=== PATIENT | male | born 1945 ===

== ENCOUNTER 2024-08-31 16:51 | Inpatient (IN) | payer MEDICARE ==
[~2024-08-31] VITALS: Ht 180.3 cm; Wt 77.4 kg
--- NOTE | 2024-08-31 19:00 | NUR ---
arrived on unit per stretcher per EMS,stood and assisted over into bed, moves slow and c/o a lot of pain to right flank area with movement,
--- NOTE | 2024-08-31 19:15 | NUR ---
resting in bed, Ruben MARIANO in to see patient, med history completed
[2024-08-31] MEDS ORDERED: LIPITOR 40MG TA40 MG PO (19:24)
[2024-08-31] MEDS ORDERED: GINKGO BILOBA40 M5 PO (19:25)
[2024-08-31] MEDS ORDERED: CALCIUM 600-D 61 TAB PO (19:25)
[2024-08-31] MEDS ORDERED: HCTZ12.5TAB PO (19:26)
[2024-08-31] MEDS ORDERED: TOPROL XL100 MG PO (19:27)
[2024-08-31] MEDS ORDERED: MICARDIS80 MG PO (19:28)
[2024-08-31] MEDS ORDERED: PROTONIX 40MG T40 MG PO (19:28)
[2024-08-31] MEDS ORDERED: THERAGRAN TAB1 UDTAB PO (19:29)
[2024-08-31] MEDS ORDERED: VIAGRA50 M1 PO (19:29)
[2024-08-31] MEDS ORDERED: SAW PALMETTO 101 SGL PO (19:31)
[2024-08-31 19:32] VITALS: BP 166/80; PULSE 68; TEMP 98
--- NOTE | 2024-08-31 19:45 | NUR ---
bedside shift report given to NURA Morillo
[2024-08-31] MEDS ORDERED: LR 1,000 ML IV SCH (20:15)
[2024-08-31] MEDS ORDERED: Ondansetron 4 MG/2 ML VIAL IV PRN (20:15)
[2024-08-31 20:45] VITALS: BP_SYST 166
[2024-08-31] MEDS ORDERED: Atorvastatin 40 MG TAB PO SCH (21:00)
--- NOTE | 2024-08-31 21:28 | NUR ---
Patient assessed around 2044. Alert and oriented, and able to make needs known. Denies having pain and discomfort. Peripheral IV to right AC. Started IV fluids per orders. Waiting on pharmacy clarification for ABX. Denies SOB and dyspnea. LS CTA. HRR. BSAx4. No edema. Indwelling lilly catheter patent, draining clear, suzanna urine via dependent drainage. Family updated on visiting hours. Voices no questions, needs, or concerns at this time. In bed with call light within reach. High fall risk precautions in place. Bed alarm on.
[2024-08-31 21:59] LABS: CREATININE, serum 0.8 mg/dL (0.72-1.25)
[2024-09-01] VITALS (23 sets, daily range): BP systolic 120–180; BP diastolic 66–87; PULSE 61–84; TEMP 97.6–99.5
--- NOTE | 2024-09-01 06:28 | NUR ---
Patient has denied pain and discomfort this shift. Continues on IV fuids and ABX per orders. Has been NPO since midnight. Voices no questions, needs, or concerns at this time. In bed with call light within reach. High fall risk precautions in place. Bed alarm on.
[2024-09-01 07:02] LABS: HEMATOCRIT 37.5 % (42.0-52.0); HEMOGLOBIN 13.2 g/dl (13.5-18.0); MEAN CELL VOLUME 97 fl (80.0-100.0); MEAN CORPUSCULAR HEMOGLOBIN 34 pg (27-31); MEAN CORPUSCULAR HGB CONC 35 g/dl (33.0-37.0); MEAN PLATELET VOLUME 11.1 fl (7.4-10.4); PLATELET COUNT 188 K/mm3 (130-400); RED BLOOD COUNT 3.85 M/mm3 (4.20-5.60); REDCELL DISTRIBUTION WIDTH-CV 12.2 % (11.5-14.5)
[2024-09-01 07:07] LABS: CALCIUM 9.2 mg/dL (8.4-10.2); CREATININE, serum 0.75 mg/dL (0.72-1.25); POTASSIUM 4.4 mEq/L (3.5-4.5)
[2024-09-01 07:55] LABS: BAND 21 % (0-10); LYMPHOCYTE 7 % (20.0-51.0); NEUTROPHILS 66 % (42.0-75.2); PLATELET ESTIMATE NORMAL (NORMAL)
--- NOTE | 2024-09-01 08:00 | NUR ---
PATIENT SITTING UP IN BED. HEAD TO TOE ASSESSMENT COMPLETED, MORNING MED GIVEN, DENIES PAIN AT THIS TIME. CLAMPED CATHETER PER IMAGING REQUEST TO RETAIN URINE IN BLADDER FOR UPCOMING PROCEDURE. BED IN LOWEST POSITION, CALL LIGHT IN REACH, NONSKID SOCKS ON.
--- NOTE | 2024-09-01 09:16 | NUR ---
turn out worker met with patient at bedside to discuss discharge planning. Patient stated that he lives by himself just outside of [place]. When asked, patient designated his daughter, Alexsandra Paniagua (p# [phone]). Patient stated that his PCP is Dr. Balderrama and that he uses the [facility]. Patient denies using any DMEs at home, denies needing any assistance with ADLs or driving to and from appointments, and confirms that he is able to drive himself to and from appointments. Patient states that he is not using any other home services at this time and is not sure if he will want to discharge home by himself or to stay with his daughter. Plan: D/C home or home with family support.
--- NOTE | 2024-09-01 09:39 | NUR ---
Initial visit; Patient appeared confused, stating he didn't know why he was in the hospital. Tractor Expert explained he would be seeing a Hospitalist soon who would speak with him, ask him questions about his health issues and aid him in getting the help he needs . And, in the mean-time Tractor Expert could keep him in her prayers and offered God's blessingss. "Neo" said that was fine and thanked Tractor Expert for visit.
--- NOTE | 2024-09-01 11:00 | NUR ---
Pt to ct per wheelchair. Pt placed on ct table in supine position. Monitors applied and O2 on at 2l/nc.
[2024-09-01] MEDS ORDERED: Midazolam 2 MG/2 ML VIAL IV SCH (11:10)
[2024-09-01] MEDS ORDERED: fentaNYL 50 MCG/ML 2 ML VIAL IV SCH ×2 (11:10→11:20)
--- NOTE | 2024-09-01 11:30 | NUR ---
Drain in place and Dr Freeman removed 40 mls of purulent drainage. Specimen obtained. Specimen labeled.
--- NOTE | 2024-09-01 11:34 | NUR ---
Aman unclamped per instruction of Dr Freeman.
--- NOTE | 2024-09-01 20:00 | NUR ---
pt is a&ox4 resting in bed watching tv. vss. meds given and assessment complete. pt denies pain. abcess drain in place w minimal output, dressing is cdi. lilly to dd w dark tea colored urine. IV to right ac fell out and a new 20g was inserted into the right forearm, LR infusing at 100ml/hr. pt denies needs at this time. call light in reach.
[2024-09-02] VITALS (11 sets, daily range): BP systolic 129–165; BP diastolic 69–79; PULSE 67–79; TEMP 98.2–100.4
[2024-09-02 06:21] LABS: HEMATOCRIT 37.4 % (42.0-52.0); HEMOGLOBIN 13.5 g/dl (13.5-18.0); MEAN CELL VOLUME 96 fl (80.0-100.0); MEAN CORPUSCULAR HEMOGLOBIN 35 pg (27-31); MEAN CORPUSCULAR HGB CONC 36 g/dl (33.0-37.0); MEAN PLATELET VOLUME 10.6 fl (7.4-10.4); PLATELET COUNT 183 K/mm3 (130-400); REDCELL DISTRIBUTION WIDTH-CV 11.9 % (11.5-14.5)
[2024-09-02 06:52] LABS: CALCIUM 8.6 mg/dL (8.4-10.2); CREATININE, serum 0.69 mg/dL (0.72-1.25); POTASSIUM 3.7 mEq/L (3.5-4.5)
--- NOTE | 2024-09-02 08:00 | NUR ---
PATIENT SITTING UP IN BED. AAOX4. HEAD TO TOE ASSESSMENT COMPLETED. MORNING MEDS GIVEN. DENIES PAIN AT THIS TIME. BED IN LOWEST POSITION, CALL LIGHT IN REACH, NONSKID SOCKS ON.
[2024-09-02 08:12] LABS: BAND 4 % (0-10); LYMPHOCYTE 11 % (20.0-51.0); NEUTROPHILS 79 % (42.0-75.2); PLATELET ESTIMATE NORMAL (NORMAL)
[2024-09-02] MEDS ORDERED: Losartan 50 MG TAB PO SCH (09:00)
[2024-09-02] MEDS ORDERED: Telmisartan 80 MG **** subs to Losartan 100 MG PO SCH (09:00)
--- NOTE | 2024-09-02 20:00 | NUR ---
PATIENT IS A&O. VSS. REPORTS MINIMAL PAIN AT DRAIN SITE RATED AT 2/10. ABSCESS DRAIN TO COMPRESSION WITH SMALL AMOUNTS OF BLOODY DRAINAGE THAT HAS A FOUL SMELL. [facility] REPORTS POSITIVE BC, AWAITING FAX. SHI TO [facility]. IV ABX INFUSING VIA PUMP INTO RIGHT FORARM IV. TOLERATING AHA DIET. HS MEDS GIVEN. HEAD TO TOE ASSESSMENT COMPLETE. NO OTHER NEEDS AT THIS TIME. CALL LIGHT IN REACH. BED ALARM ON.
[2024-09-03] VITALS (10 sets, daily range): BP systolic 144–164; BP diastolic 71–78; PULSE 53–69; TEMP 97.5–98.6
[2024-09-03 04:40] LABS: BASO # 0.1 K/mm3 (0.0-0.2); BASO % 0.8 % (0.0-2.0); EOS # 0.3 K/mm3 (0.0-0.7); EOS % 4.4 % (0.0-4.0); GRAN # 3.2 K/mm3 (1.4-6.5); GRAN % 42.7 % (42.2-75.2); LYMPH # 3.3 K/mm3 (1.2-3.4); LYMPH % 43.9 % (20.0-51.0); MEAN CELL VOLUME 95 fl (80.0-100.0); MEAN CORPUSCULAR HEMOGLOBIN 33 pg (27-31); MEAN CORPUSCULAR HGB CONC 35 g/dl (33.0-37.0); MEAN PLATELET VOLUME 10.9 fl (7.4-10.4); MONO # 0.6 K/mm3 (0.1-0.6); MONO % 7.8 % (1.7-9.3); PLATELET COUNT 215 K/mm3 (130-400); RED BLOOD COUNT 3.89 M/mm3 (4.20-5.60); REDCELL DISTRIBUTION WIDTH-CV 14.3 % (11.5-14.5)
[2024-09-03 04:41] LABS: HEMATOCRIT 36.8 % (42.0-52.0)
[2024-09-03 04:54] LABS: CALCIUM 8.7 mg/dL (8.4-10.2); CREATININE, serum 0.75 mg/dL (0.72-1.25); POTASSIUM 3.7 mEq/L (3.5-4.5)
[2024-09-03 05:31] LABS: LYMPHOCYTE 15 % (20.0-51.0); NEUTROPHILS 77 % (42.0-75.2); PLATELET ESTIMATE NORMAL (NORMAL)
--- NOTE | 2024-09-03 08:37 | NUR ---
SHIFT ASSESSMENT COMPLETE. VSS. PATIENT GETTING UP TO RECLINER FOR BREAKFAST. ALL MORNING MEDS GIVEN PER ORDERS. APTIENT REPORTS NO PAIN AT THIS TIME. ACCORDIAN DRAIN IN PLACE TO ABD WITH DARK BROWN DRAINAGE. OSULLIVAN CATH IN PLACE DARK YELOOW TO ORANGE COLORED URINE DRAINING. PATIENT HAS NO REQUEST AT THIS TIME. CHAIR ALARM ON AND CALL LIGHT IN REACH
[2024-09-03] MEDS ORDERED: hydroCHLOROthiazide 12.5 MG CAP PO SCH (09:00)
[2024-09-03] MEDS ORDERED: Iohexol 300 - 100 ML VIAL IV ONE (12:03)
--- NOTE | 2024-09-03 12:13 | NUR ---
SW attended clinical rounds. Anticipate possible discharge tomorrow. SW met with patient to review Medicare IM form, patient voiced understanding and agreement with discharge to home when medically ready. Patient signed form, original on chart, copy to patient. Patient stated he has a FWW at home and does not require one to be ordered for discharge. Patient verified that he has transportation available for ride home. Discharge plan: Home
--- NOTE | 2024-09-03 19:48 | NUR ---
Patient assessed at this time, A/Ox4, see shift assessment, denies pain or discomfort, still with IV infusing well on right forearm, reports he had BM today, with accordion drain with no drainage noted, dressing clean, dry and intact, denies further needs, call light and personal items within reach, will continue to monitor.
[2024-09-04] VITALS (12 sets, daily range): BP systolic 150–178; BP diastolic 65–81; PULSE 52–62; TEMP 97.7–98.3
[2024-09-04 08:29] LABS: BASO # 0.1 K/mm3 (0.0-0.2); BASO % 0.5 % (0.0-2.0); EOS # 0.2 K/mm3 (0.0-0.7); GRAN % 65.5 % (42.2-75.2); HEMOGLOBIN 13.8 g/dl (13.5-18.0); LYMPH # 1.5 K/mm3 (1.2-3.4); LYMPH % 16.2 % (20.0-51.0); MEAN CELL VOLUME 95 fl (80.0-100.0); MEAN CORPUSCULAR HEMOGLOBIN 34 pg (27-31); MEAN CORPUSCULAR HGB CONC 36 g/dl (33.0-37.0); MONO # 1.4 K/mm3 (0.1-0.6); MONO % 15.4 % (1.7-9.3); PLATELET COUNT 216 K/mm3 (130-400); RED BLOOD COUNT 4.01 M/mm3 (4.20-5.60); REDCELL DISTRIBUTION WIDTH-CV 11.6 % (11.5-14.5)
--- NOTE | 2024-09-04 08:30 | NUR ---
SHIFT ASSESSMENT COMPLETE. VSS. PATIENT AWAKE EATIING BREAFAST IN BED. ALL MORNING MEDS GIVEN ORDERED. PATIENT STATES NO PAIN THIS AM. DRAIN IN PLACE WITH BROWN DRAINAGE TO COMPRESSION. OSULLIVAN IN PLACE URINE YELLOW BUT CLOUDY THIS AM. PATIENT HAS NO REQUEST AT THIS TIME. BED ALARM ON AND CALL LIGHT IN REACH
[2024-09-04 08:47] LABS: ALBUMIN 2.6 g/dL (3.4-4.8); BILIRUBIN,TOTAL 0.9 mg/dL (0.2-1.2); CALCIUM 9.1 mg/dL (8.4-10.2); CREATININE, serum 0.7 mg/dL (0.72-1.25); POTASSIUM 3.3 mEq/L (3.5-4.5); TOTAL PROTEIN 6.5 g/dl (6.2-8.1)
--- NOTE | 2024-09-04 09:19 | NUR ---
PATIENT REQUESTING TO GO TO BATHROOM AND SIT IN RECLINER THIS NURSE ASSISTED PATIENT UP AND PT TOOK OVER AND WALKED WITH PATIENT AROUND THE ROOM AND TO THE RECLINER TO SIT. NO OTHER REQUEST AT THIS TIME. CALL LIGHT IN REACH AND CHAIR ALARM ON
--- NOTE | 2024-09-04 12:36 | NUR ---
Data: Patient declined spiritual care visit offered during Straightening Press Operator Helper rounds stating he is Anabaptist and he has said his prayers. Patient accepted a rosary offered to him and thanked Straightening Press Operator Helper. Assessment: None. Patient declined. Plan of Care: Chaplains will remain available as needed/requested while Patient is admitted to this hospital.
--- NOTE | 2024-09-04 21:06 | NUR ---
Patient assessed at this time, watching TV, denies pain or discomfort, IV to right AC infiltrated, restarted IV to right wrist and tolerated it well, with lilly to dependent drainage, still with abscess drain to abdomen scant drainage noted, denies further needs, call light and personal items within reach, will continue to monitor.
[2024-09-05] VITALS (14 sets, daily range): BP systolic 150–157; BP diastolic 68–82; PULSE 48–63; TEMP 97.5–98.5
--- NOTE | 2024-09-05 07:27 | NUR ---
SHIFT ASSESSMENT COMPLETE. VSS. PATIENT RESTING IN BED AWAITING BREAKFAST. DRAIN IN PLACE NO DRAINAGE AT THIS TIME. OSULLIVAN IN PLACE DARKER YELLOW URINE DRAINING. PATIENT STATES NO PAIN AT THIS TIME. BED ALARM ON AND CALL LIGHT IN REACH
[2024-09-05 09:38] LABS: HEMOGLOBIN 14.2 g/dl (13.5-18.0); MEAN CELL VOLUME 94 fl (80.0-100.0); MEAN CORPUSCULAR HEMOGLOBIN 34 pg (27-31); MEAN CORPUSCULAR HGB CONC 36 g/dl (33.0-37.0); MEAN PLATELET VOLUME 10.5 fl (7.4-10.4); PLATELET COUNT 253 K/mm3 (130-400); RED BLOOD COUNT 4.16 M/mm3 (4.20-5.60); REDCELL DISTRIBUTION WIDTH-CV 11.4 % (11.5-14.5)
[2024-09-05 10:03] LABS: ALANINE AMINOTRANSFERASE 20 U/L (0-55); ALBUMIN 2.8 g/dL (3.4-4.8); ALKALINE PHOSPHATASE 56 U/L (40-150); ANION GAP 9 mmol/L (7-16); AST,SGOT 27 U/L (5-34); BILIRUBIN,TOTAL 0.7 mg/dL (0.2-1.2); CALCIUM 9.3 mg/dL (8.4-10.2); CHLORIDE 97 mEq/L (98-107); GLUCOSE 104 mg/dL (70-99); POTASSIUM 3.5 mEq/L (3.5-4.5); SODIUM 131 mEq/L (136-145)
[2024-09-05 10:13] LABS: BLOOD UREA NITROGEN < 5 mg/dL (8-26)
[2024-09-05 10:55] LABS: BAND 3 % (0-10); BASOPHIL 1 % (0-2); LYMPHOCYTE 30 % (20.0-51.0); NEUTROPHILS 53 % (42.0-75.2); NUCLEATED RED BLOOD CELL 1 (0-6); PLATELET ESTIMATE NORMAL (NORMAL)
[2024-09-05] MEDS ORDERED: Vancomycin 1.25 GM,Special Dose/Pharmacy Prepared 1.25 GM in NS 250 ML IV SCH (16:15)
[2024-09-05] MEDS ORDERED: Vancomycin 1.75 GM,Special Dose/Pharmacy Prepared 1.75 GM in NS 500 ML IV ONE (16:45)
--- NOTE | 2024-09-05 19:11 | NUR ---
Vancomycin Initial Dosing Pharmacy Note Ordering provider: Danna Mckoy MD Indication/duration: ABDOMINAL ABSCESS - 7 DAYS Relevant comorbidities: 79 YO MALE LABS: CRCL 64 ML/MIN , 77.4 KG Recommendation: Loading dose: 1.75 grams Maintenance dose: 1.25 grams every 12 hours Trough goal: 15-20 ug/mL
--- NOTE | 2024-09-05 21:42 | NUR ---
PATIENT ALERT AND ORIENTED X4. VSS. PATIENT HERE FOR DIVERTICULITIS WITH AN ABSCESS DRAIN PLACEMENT. DRAIN WITH SMALL AMOUNT OF OUTPUT. DRESSING CDI. IV TO RIGHT FA WITH VANC INFUSING. PATIENT DENIES ANY PAIN AT THIS TIME. PM MEDS ADMINISTERED. NO FURTHER NEEDS. CALL LIGHT IN REACH. BED ALARM ON.
[2024-09-06] VITALS (7 sets, daily range): BP systolic 117–165; BP diastolic 63–81; PULSE 56–63; TEMP 97.4–98.3
[2024-09-06] MEDS ORDERED: Vancomycin 1.25 GM,Special Dose/Pharmacy Prepared 1.25 GM in NS 250 ML IV SCH (08:00)
--- NOTE | 2024-09-06 11:50 | NUR ---
SHIFT ASSESSMENT COMPLETED. PATIENT AWAKE AND REQUESTING TO GO TO RESTROOM. THIS HELPED PATIENT AMBULATE TO RESTROOM AND THEN TO RECLINER. PATIENT SBA. BREAKFAST ORDERED. ALL MORNING MEDS GIVEN ORDERED. PATIENT REPORTS NO PIAN THIS AM AND NO REQUEST. CHAIR ALARM ON AND CALL LIGHT IN REACH
--- NOTE | 2024-09-06 12:22 | NUR ---
SW attended clinical rounds. Patient not ready for discharge today. Patient informed SW that his walker at home will not do well on the large gravel driveway where he walks at home. He asked for a walker without wheels and voiced no preference on DME provider and is agreeable to [facility]. DME order and supporting clinicals faxed to [facility] Discharge plan: Home
[2024-09-06] MEDS ORDERED: Iohexol 300 - 100 ML VIAL IV ONE (15:54)
[2024-09-06] MEDS ORDERED: FLOMAX 0.40.4 MG/CAP PO (17:15)
[2024-09-06] MEDS ORDERED: AMOXICILLIN 8751 TAB PO (17:16)
--- NOTE | 2024-09-06 18:52 | NUR ---
DISCHARGE ORDERS PLACED. ABD DRAIN REMOVED, SUTURES REMOVED AND DRAIN TUBE ALL INTACKED. GUAZE PLACED AND FOAM TAPE PLACED TO HOLD PRESSURE OVER INSCISION. INT REMOVED FROM RT FOREARM ALL INTACKED. PATIENT TOLERATED WELL. PATIENT UP GETTING DRESSED AND FAMILY ON THEIR WAY TO RIGHT OF WAY CUTTER PATIENT. DISCHARGE AND PATIENT EDUCATION PRINTED.
--- NOTE | 2024-09-06 19:40 | NUR ---
This nurse went over discharge paperwork with patient at 1930. Patient's ride here, and assisted out via wheelchair at 1940. Day shift nurse had already taken out IV. Patient voiced no questions, needs, or concerns at time of discharge.
--- NOTE | 2024-09-07 09:43 | NUR ---
SW notified by [facility] that they do not have address for patient to deliver the walker that was ordered for discharge. Patient was discharged late yesterday prior to receiving walker. SW called patient at [phone] and was able to verify his address as [address] [place] [address]. [facility] notified of patient's address for delivery.
== END 2024-09-06 19:40 | disposition home or self-care (01) | DRG 391 ==
LOC: SURG 16:51
PROVIDERS: Physician Assistant; Surgery; ADMIT Internal Medicine
PROC: 0W9J30Z Drainage of Pelvic Cavity with Drainage Device, Percutaneous Approach (ICD-10-PCS; principal; 2024-09-01)
DX: K57.20 Diverticulitis of large intestine with perforation and abscess without bleeding (principal); K65.1 Peritoneal abscess; E87.1 Hypo-osmolality and hyponatremia; E87.6 Hypokalemia; I10 Essential (primary) hypertension; K57.90 Diverticulosis of intestine, part unspecified, without perforation or abscess without bleeding; E78.5 Hyperlipidemia, unspecified; K21.9 Gastro-esophageal reflux disease without esophagitis; R33.9 Retention of urine, unspecified; B95.2 Enterococcus as the cause of diseases classified elsewhere; B96.5 Pseudomonas (aeruginosa) (mallei) (pseudomallei) as the cause of diseases classified elsewhere; B96.6 Bacteroides fragilis [B. fragilis] as the cause of diseases classified elsewhere; Z85.828 Personal history of other malignant neoplasm of skin
CPT/HCPCS: C1769; J2250; J2543; J3010; J3370; J7040; J7050; J7120; Q9967